=== PATIENT | female | born 1960 | race Asian ===

== ENCOUNTER 2022-05-03 18:49 | Emergency (ER) | payer MEDICAID ==
[~2022-05-03] VITALS: Ht 160 cm; Wt 63.6 kg
[2022-05-03] MEDS ORDERED: ATOR10TA69 PO (19:18)
[2022-05-03] MEDS ORDERED: AMOX1TAB16 PO (20:10)
[2022-05-03 20:33] VITALS: BP 127/74
== END 2022-05-03 20:40 | disposition home or self-care (01) ==
LOC: EMS 18:53
DX: L03.213 Periorbital cellulitis (principal); E78.00 Pure hypercholesterolemia, unspecified; Z87.442 Personal history of urinary calculi
CPT/HCPCS: 99283; Z7502

== ENCOUNTER 2023-01-06 21:31 | Emergency (ER) | payer MEDICAID ==
[~2023-01-06] VITALS: Ht 160 cm; Wt 63.6 kg
[~2023-01-06 21:31] MED LIST: AMOX1TAB16 PO; ATOR10TA69 PO
[2023-01-06 22:10] VITALS: BP 135/79; PULSE 69; RESP 16; TEMP 97.9
[2023-01-06] MEDS ORDERED: IBUP-1492 PO (22:13)
[2023-01-06] MEDS ORDERED: DOXY-354 PO (22:13)
== END 2023-01-06 22:29 | disposition home or self-care (01) ==
LOC: EMS 21:31
DX: L02.411 Cutaneous abscess of right axilla (principal); E78.00 Pure hypercholesterolemia, unspecified; Z98.890 Other specified postprocedural states
CPT/HCPCS: 99283; Z7502

== ENCOUNTER 2023-11-24 16:13 | Emergency (ER) | payer MEDICAID, OTHER ==
[~2023-11-24] VITALS: Ht 160 cm; Wt 63.6 kg
[~2023-11-24 16:13] MED LIST changes: +DOXY-354 PO; +IBUP-1492 PO
[2023-11-24 16:21] VITALS: TEMP 98
[2023-11-24 17:54] VITALS: BP 115/76; PULSE 72; RESP 16
[2023-11-24] MEDS: TraMADol HCL 50 MG TABLET PO ONE (18:30)
== END 2023-11-24 19:00 | disposition home or self-care (01) ==
LOC: EMS 16:13
DX: R07.89 Other chest pain (principal); E78.00 Pure hypercholesterolemia, unspecified; Z98.890 Other specified postprocedural states
CPT/HCPCS: 71046; 93005; 99283

== ENCOUNTER 2025-02-04 13:30 | Emergency (ER) | payer MEDICAID, OTHER ==
[~2025-02-04] VITALS: Ht 157.5 cm; Wt 65.0 kg
[~2025-02-04 13:30] MED LIST changes: +AMOX-457 PO; -AMOX1TAB16 PO
[2025-02-04 14:12] LABS: PLATELET COUNT (AUTO) 255 K/uL (150-450); RED BLOOD CELL COUNT(AUTO) 4.99 MIL/uL (4.00-5.20); RED CELL DISTRIBUTION WIDTH 13.6 % (11.5-14.5); WHITE BLOOD COUNT (AUTO) 5.6 K/uL (4.5-11.0)
[2025-02-04 14:19] LABS: APPEARANCE,URINE CLEAR (CLEAR); GLUCOSE, URINE (UA) NEGATIVE (NEGATIVE); LEUKOCYTE ESTERASE ,URINE SMALL (NEGATIVE); NITRATE,URINE NEGATIVE (NEGATIVE); OCCULT BLOOD,URINE NEGATIVE (NEGATIVE); SPECIFIC GRAVITIY, URINE 1.023 (1.003-1.030)
[2025-02-04 14:20] LABS: CALCIUM, TOTAL 9.6 mg/dL (8.8-10.5); CREATININE 0.90 mg/dL (0.60-1.30); GLOMERULAR FILTR. RATE CALC > 60 mL/min (>60); GLUCOSE,RANDOM 88 mg/dL (70-110); SODIUM SERUM 140 mmol/L (136-145); UREA NITROGEN, BLOOD 12 mg/dL (7-18)
[2025-02-04 14:22] LABS: ASPARTATE AMINOTRANSFERASE 21 U/L (15-37); TOTAL PROTEIN, SERUM 7.9 g/dL (6.4-8.2)
[2025-02-04] MEDS ORDERED: SODIUM CHLORIDE 0.9% 100 ML ONE (15:15)
[2025-02-04] MEDS ORDERED: 0.9% SODIUM CHLORIDE 10 ML SYRINGE IVP ONE (15:15)
[2025-02-04] MEDS ORDERED: IOHEXOL 350 MG/ML 100 ML VIAL ONE (15:15)
[2025-02-04 16:14] VITALS: BP 168/85; PULSE 69; RESP 16; TEMP 97.9; O2SAT 98
[2025-02-04] MEDS ORDERED: CEPH-558 PO (17:10)
== END 2025-02-04 17:26 | disposition home or self-care (01) ==
LOC: EMS 13:30
DX: N39.0 Urinary tract infection, site not specified (principal); R31.9 Hematuria, unspecified; E78.00 Pure hypercholesterolemia, unspecified; Z87.442 Personal history of urinary calculi; Z98.890 Other specified postprocedural states; Z79.899 Other long term (current) drug therapy
CPT/HCPCS: 99285; 74177; 80053; 81001; 85025; 36415; Q9967; J7050